=== PATIENT | female | born 1965 | race Caucasian/White ===

== ENCOUNTER 2022-03-29 18:18 | Emergency (ER) | payer OTHER ==
[2022-03-29] MEDS ORDERED: Sodium Chloride 0.9% 10 ML Syringe FLUSH PRN (18:25)
[2022-03-29] MEDS ORDERED: Glucagon,Human Recombinant 1 MG Vial IV ONE (18:26)
== END 2022-03-29 19:25 | disposition home or self-care (01) ==
LOC: VM.ED 18:18
DX: T18.128A Food in esophagus causing other injury, initial encounter (principal)
CPT/HCPCS: 96374; 99283-25; 99284; J1610